=== PATIENT | female | born 2000 | race African-American/Black ===

== ENCOUNTER 2021-08-12 00:44 | Inpatient (IN) | payer MEDICAID ==
[~2021-08-12] VITALS: Ht 162.6 cm; Wt 68.9 kg
[2021-08-12] MEDS ORDERED: BUTORPHANOL TARTRATE 2 MG/ML VIAL IV PRN (02:45)
[2021-08-12] MEDS ORDERED: NALOXONE HCL 0.4 MG/ML 1ML VIAL IV PRN (02:45)
[2021-08-12] MEDS ORDERED: NALOXONE HCL 0.4 MG/ML 1ML VIAL IM PRN ×2 (02:45→03:15)
[2021-08-12] MEDS ORDERED: LACTATED RINGERS 1,000 ML IV SCH ×2 (02:45→03:15)
[2021-08-12] MEDS ORDERED: MISOPROSTOL 100MCG TABLET VG SCH ×2 (02:45→03:15)
[2021-08-12] MEDS ORDERED: RHO(D) IMMUNE GLOBULIN 300 MCG/SYR IM ONE ×3 (02:45→03:15)
[2021-08-12] MEDS ORDERED: DIPHENHYDRAMINE 50MG/ML VIAL IM PRN (02:45)
[2021-08-12] MEDS ORDERED: AMPICILLIN 2GM in NS 100ML 100 ML IV SCH ×2 (03:15→04:00)
[2021-08-12] MEDS ORDERED: CARBOPROST TROMETHAMINE 250 MCG/ML AMPUL IM PRN (03:15)
[2021-08-12] MEDS ORDERED: METHYLERGONOVINE MALEATE 0.2 MG/ML IM PRN ×2 (03:15→15:30)
[2021-08-12] MEDS ORDERED: DEXT 5%/LR + PITOCIN 20UNITS/L 1,000 ML IV SCH ×2 (03:15→15:30)
[2021-08-12] MEDS ORDERED: MISOPROSTOL 100MCG TABLET VG PRN ×2 (03:30→03:45)
[2021-08-12] MEDS ORDERED: LIDOCAINE HCL 1% 10 MG/ML 10ML VIAL IJ SCH (04:00)
[2021-08-12 04:18] LABS: BASOPHILS % 0.2 % (0.0-2.0); EOSINOPHILS % 0.4 % (0.0-5.0); HEMATOCRIT. 30.3 % (36.0-48.0); HEMOGLOBIN. 10.5 g/dL (12.0-16.0); LYMPHOCYTES % 17.1 % (20.0-50.0); MEAN CORPUSCULAR HEMOGLOBIN 32.9 pg (28.0-32.0); MEAN CORPUSCULAR VOLUME 94.8 fL (81.0-99.0); MEAN PLATELET VOLUME 10.1 fl (7.4-10.4); MONOCYTES % 7.3 % (2.0-8.0); PLATELET 177 x1000/uL (130-400); RED CELL DISTRIBUTION WIDTH 13.2 % (11.6-14.6)
[2021-08-12 04:29] LABS: PARTIAL THROMBOPLASTIN TIME 27.8 sec (23.4-31.0); PROTHROMBIN TIME 10.6 sec (9.6-11.0)
[2021-08-12 04:31] LABS: CHLORIDE 107 mEq/L (98-107)
[2021-08-12 05:06] LABS: HEPATITIS B SURFACE ANTIGEN NEGATIVE
[2021-08-12] MEDS: BUTORPHANOL TARTRATE 2 MG/ML VIAL IV PRN ×2 (06:42→09:01)
[2021-08-12] MEDS ORDERED: AMPICILLIN 1,000 MG in SODIUM CHLORIDE 0.9% 50 ML IV SCH ×2 (09:00→10:00)
[2021-08-12] MEDS ORDERED: ROPIVACAINE HCL/PF EPIDURAL 200 ML EPI SCH (13:30)
[2021-08-12] MEDS ORDERED: RHO(D) IMMUNE GLOBULIN 300 MCG/SYR IM PRN (15:30)
[2021-08-12] MEDS ORDERED: LANOLIN OINT 7GM TUBE TOP PRN (15:30)
[2021-08-12] MEDS ORDERED: IBUPROFEN 400MG TABLET PO PRN (15:30)
[2021-08-12 16:30] VITALS: BP 103/53
[2021-08-12 17:00] VITALS: BP 100/55
[2021-08-12 17:30] VITALS: BP 107/59
[2021-08-12 18:06] LABS: CLARITY URINE CLOUDY (CLEAR); COLOR URINE RED (YELLOW); KETONES URINE NEGATIVE (NEGATIVE); LEUKOCYTE ESTERASE URINE 2+ (NEGATIVE); NITRITE URINE NEGATIVE (NEGATIVE); OCCULT BLOOD URINE 3+ (NEGATIVE); PROTEIN URINE 2+ (NEGATIVE); SPECIFIC GRAVITY URINE 1.013 (1.005-1.030); UROBILINOGEN URINE 0.2 E.U./dL (0.2-1.0)
[2021-08-12 18:23] LABS: *AMPHETAMINES SCREEN URINE NEGATIVE (NEGATIVE); *BARBITURATES SCREEN URINE NEGATIVE (NEGATIVE); *BENZODIAZEPINES SCREEN URINE NEGATIVE (NEGATIVE); *COCAINE SCREEN URINE NEGATIVE (NEGATIVE); METHADONE URINE SCREEN NEGATIVE (NEGATIVE); OPIATES URINE SCREEN NEGATIVE (NEGATIVE)
[2021-08-12 18:24] LABS: CANNABINOID URINE SCREEN NEGATIVE (NEGATIVE); PHENCYCLIDINE URINE SCREEN NEGATIVE (NEGATIVE)
[2021-08-12] MEDS ORDERED: ROPIVACAINE HCL/PF EPIDURAL 200 ML EPI ONE (18:38)
[2021-08-12 20:00] VITALS: BP 124/55
[2021-08-12] MEDS: IBUPROFEN 800MG TABLET PO PRN (21:45)
[2021-08-13] VITALS: BP 99/52
[2021-08-13 04:00] VITALS: BP 111/70
[2021-08-13] MEDS: IBUPROFEN 800MG TABLET PO PRN ×3 (05:29→17:44)
[2021-08-13 07:16] LABS: BASOPHILS % 0.1 % (0.0-2.0); EOSINOPHILS % 0.6 % (0.0-5.0); HEMATOCRIT. 29.3 % (36.0-48.0); LYMPHOCYTES % 14.7 % (20.0-50.0); MEAN CORPUSCULAR HEMOGLOBIN 32.8 pg (28.0-32.0); MEAN CORPUSCULAR VOLUME 96.5 fL (81.0-99.0); MEAN PLATELET VOLUME 10.2 fl (7.4-10.4); MONOCYTES % 9.9 % (2.0-8.0); NEUTROPHILS % 74.7 % (40.0-76.0); PLATELET 167 x1000/uL (130-400); RED BLOOD CELL COUNT 3.04 mill/uL (4.2-5.4); RED CELL DISTRIBUTION WIDTH 13.3 % (11.6-14.6)
[2021-08-13 07:40] VITALS: BP 104/65
[2021-08-13] MEDS ORDERED: PRENATAL VIT/FE FUMARATE/FA TABLET PO SCH (09:00)
[2021-08-13 16:15] VITALS: BP 109/60
[2021-08-13 20:00] VITALS: BP 102/62
[2021-08-14 04:00] VITALS: BP 96/54
[2021-08-14 08:00] VITALS: BP 104/66
[2021-08-14] MEDS ORDERED: IBUP-2030 PO (11:02)
== END 2021-08-14 13:40 | disposition home or self-care (01) | DRG 560 ==
LOC: 8 EST LDRP 00:44 → OBSVTOIN 00:44 → 8EST 16:30
PROVIDERS: ADMIT Obstetrics & Gynecology; ATTEND Obstetrics & Gynecology
PROC: 10E0XZZ Delivery of Products of Conception, External Approach (ICD-10-PCS; principal; 2021-08-12)
PROC: 0HQ9XZZ Repair Perineum Skin, External Approach (ICD-10-PCS; 2021-08-12)
PROC: 3E0R3BZ Introduction of Anesthetic Agent into Spinal Canal, Percutaneous Approach (ICD-10-PCS; 2021-08-12)
PROC: 00HU33Z Insertion of Infusion Device into Spinal Canal, Percutaneous Approach (ICD-10-PCS; 2021-08-12)
DX: O41.03X0 Oligohydramnios, third trimester, not applicable or unspecified (principal); Z37.0 Single live birth; D62 Acute posthemorrhagic anemia; O69.81X0 Labor and delivery complicated by cord around neck, without compression, not applicable or unspecified; O99.824 Streptococcus B carrier state complicating childbirth; O70.0 First degree perineal laceration during delivery; O99.02 Anemia complicating childbirth; Z20.822 Contact with and (suspected) exposure to COVID-19; Z3A.38 38 weeks gestation of pregnancy
CPT/HCPCS: 36415; 76805; 76818; 80053; 80305; 81003; 85025; 86592; 86703; 86762; 86850; 86900; 87340; 87426; 90384; J0290; J0595; J2590; J2795; J7120; A4315

== ENCOUNTER 2022-06-08 19:15 | Emergency (ER) | payer MEDICAID ==
[~2022-06-08] VITALS: Ht 162.6 cm; Wt 57.0 kg
[~2022-06-08 19:15] MED LIST: IBUP-2030 PO
[2022-06-08 19:18] VITALS: BP 132/66
[2022-06-08 20:22] LABS: BASOPHILS % 0.1 % (0.0-2.0); EOSINOPHILS % 0.4 % (0.0-5.0); HEMATOCRIT. 33.2 % (36.0-48.0); HEMOGLOBIN. 10.9 g/dL (12.0-16.0); LYMPHOCYTES % 14.6 % (20.0-50.0); MEAN CORPUSCULAR HEMOGLOBIN 29.7 pg (28.0-32.0); MEAN CORPUSCULAR VOLUME 90.3 fL (81.0-99.0); MONOCYTES % 10.6 % (2.0-8.0); NEUTROPHILS % 74.3 % (40.0-76.0); PLATELET 241 x1000/uL (130-400); RED BLOOD CELL COUNT 3.68 mill/uL (4.2-5.4); RED CELL DISTRIBUTION WIDTH 13.9 % (11.6-14.6)
[2022-06-08 20:31] LABS: CHLORIDE 106 mEq/L (98-107)
[2022-06-08 20:55] LABS: B-HCG QUANTITATIVE 3288 mIU/mL (<3)
[2022-06-08] MEDS ORDERED: KETOROLAC 60MG/2ML VIAL IM ONE (21:15)
[2022-06-08] MEDS ORDERED: IBUP-2029 MT (21:19)
== END 2022-06-08 22:20 | disposition home or self-care (01) ==
LOC: ER 19:22
DX: O03.9 Complete or unspecified spontaneous abortion without complication (principal); Z3A.01 Less than 8 weeks gestation of pregnancy
CPT/HCPCS: 36415; 76830; 76856; 80053; 81025; 84702; 85025; 86850; 86900; 86901; 96372; 99285; J1885; Z7610